=== PATIENT | male | born 1970 | race Caucasian/White ===

== ENCOUNTER 2024-07-04 06:17 | Day surgery (SDC) | payer BC, OTHER ==
[2024-07-04] MEDS: Lactated Ringers 1,000 ML IV SCH (06:54)
[2024-07-04] MEDS ORDERED: Midazolam 1 MG/ML 2 ML SDV ONE (07:11)
[2024-07-04] MEDS ORDERED: Propofol 200 MG/20 ML SDV ONE ×2 (07:12→07:38)
[2024-07-04] MEDS ORDERED: fentaNYL 50 MCG/ML SDV ONE (07:12)
== END 2024-07-04 08:55 | disposition home or self-care (01) ==
LOC: JP.SDS 06:17
PROVIDERS: ATTEND Family Medicine
DX: Z12.11 Encounter for screening for malignant neoplasm of colon (principal); K57.30 Diverticulosis of large intestine without perforation or abscess without bleeding; K21.9 Gastro-esophageal reflux disease without esophagitis
CPT/HCPCS: 45380; J2250; J2704; J3010; J7120